=== PATIENT | female | born 1995 | race Two or more races ===

== ENCOUNTER 2019-01-18 20:26 | Emergency (ER) | payer MEDICAID, OTHER ==
[~2019-01-18] VITALS: Ht 160 cm; Wt 63.5 kg
[2019-01-19 03:57] VITALS: BP 119/74
[2019-01-19] MEDS ORDERED: IBUPROFEN 800 MG TAB PO ONE (05:00)
== END 2019-01-19 05:58 | disposition home or self-care (01) ==
LOC: ER 20:26
DX: S40.022A Contusion of left upper arm, initial encounter (principal); S40.021A Contusion of right upper arm, initial encounter; M62.830 Muscle spasm of back; M54.5 Low back pain; R51 Headache; M54.2 Cervicalgia; R20.2 Paresthesia of skin; V49.50XA Passenger injured in collision with unspecified motor vehicles in traffic accident, initial encounter; Y93.89 Activity, other specified; Y92.410 Unspecified street and highway as the place of occurrence of the external cause; Y99.8 Other external cause status
CPT/HCPCS: 72040; 72100; 73030